=== PATIENT | male | born 1970 | race Hispanic/Latino ===

== ENCOUNTER 2017-02-14 08:04 | Outpatient (CLI) | payer MEDICAID ==
[2017-02-14] MEDS ORDERED: XYLOCAINE TOPICAL 4% TP ONE ×2 (08:34→08:40)
[2017-02-14] MEDS ORDERED: NACL 0.9% 500 ML IR ONE (08:34)
[2017-02-14] MEDS ORDERED: NACL 0.9% IR PRN (09:00)
== END 2017-02-14 08:05 | disposition home or self-care (01) ==
LOC: WOUND 08:04
PROVIDERS: ATTEND Surgery
DX: S81.801A Unspecified open wound, right lower leg, initial encounter (principal); I10 Essential (primary) hypertension; F17.200 Nicotine dependence, unspecified, uncomplicated; Z72.89 Other problems related to lifestyle; W34.09XA Accidental discharge from other specified firearms, initial encounter; Y93.89 Activity, other specified; Y92.89 Other specified places as the place of occurrence of the external cause; Y99.8 Other external cause status
CPT/HCPCS: 11042; G0463